=== PATIENT | male | born 1980 | race Two or more races ===

== ENCOUNTER 2025-04-28 13:40 | Inpatient (IN) ==
[2025-04-28] MEDS ORDERED: XYLOCAINE 2 % (PLAIN) ONE (15:14)
[2025-04-28] MEDS ORDERED: NovoLIN R (or HumuLIN R) SUBCUT PRN ×2 (15:57→16:37)
[2025-04-28] MEDS ORDERED: VANCOMYCIN IV *PREMIX 1 G/200 ML BAG 1 G/200 ML PIGGYBACK IV SCH (15:57)
[2025-04-28] MEDS ORDERED: NS 250 ML IV 25 ML IV PRN (15:57)
[2025-04-28] MEDS ORDERED: ZOSYN VIAL 4.5 GRAMS 4.5 G in NS 100 ML IV 100 ML IV SCH (15:57)
[2025-04-28 16:17] VITALS: BMI 33.3
[2025-04-28 16:30] LABS: BASOPHILS % (AUTO) 0.4 % (0.2-1.0); EOSINOPHILS # (AUTO) 0.2 x10^3/uL (0.0-0.2); EOSINOPHILS % (AUTO) 1.8 % (0.9-2.9); HEMATOCRIT 44.4 % (42.0-54.0); HEMOGLOBIN 14.9 g/dL (13.5-18.0); LYMPHOCYTES # (AUTO) 2.8 X10^3/uL (1.3-2.9); LYMPHOCYTES % (AUTO) 23.7 % (21.0-51.0); MEAN CORPUSCULAR HEMOGLOBIN 29.1 pg (27.0-34.0); MEAN CORPUSCULAR HGB CONC 33.6 g/dL (33.0-35.0); MEAN CORPUSCULAR VOLUME 86.5 fL (80.0-100.0); MONOCYTES # (AUTO) 1.2 x10^3/uL (0.3-0.8); MONOCYTES % (AUTO) 10.1 % (0.0-13.0); NEUTROPHILS # (AUTO) 7.6 x10^3/uL (2.2-4.8); PLATELET COUNT 224 X10^3/uL (150.0-450.0); RED BLOOD COUNT 5.13 X10^6/uL (4.7-6.0); RED CELL DISTRIBUTION WIDTH 13.6 % (11.6-16.5); WHITE BLOOD COUNT 11.8 X10^3/uL (3.6-10.0)
[2025-04-28 16:39] LABS: ALANINE AMINOTRANSFERASE 44 Units/L (12-78); ALBUMIN 4.7 g/dL (3.4-5.0); ALKALINE PHOSPHATASE 105 Units/L (46-116); ASPARTATE AMINO TRANSFERASE 23 Units/L (15-37); BLOOD UREA NITROGEN 9 mg/dL (7-18); CALCIUM 9.8 mg/dL (8.5-10.1); CARBON DIOXIDE 28.4 mmol/L (21-32); CHLORIDE 101 mmol/L (98-107); CREATININE 1.05 mg/dL (0.70-1.30); GLUCOSE 100 mg/dL (65-99); POTASSIUM 3.4 mmol/L (3.5-5.1); SODIUM 140 mmol/L (136-145); TOTAL PROTEIN 10.7 g/dL (6.4-8.2); eGFR NON BLACK RACES > 60 (>60)
--- NOTE | 2025-04-28 17:04 | US ---
EXAM: LIMITED RIGHT INNER THIGH/PERINEUM AREA SOFT TISSUE ULTRASOUND HISTORY: Possible abscess in the right thigh and perennial. TECHNIQUE: Umanzor scale imaging, duplex Doppler and color flow Doppler imaging are performed with a high frequency linear transducer. COMPARISON: None available. FINDINGS: The region of interest demonstrates severe diffuse subcutaneous soft tissue edema and hyperemia consistent with cellulitis. There is a relatively focal, ill-defined, subcutaneous phlegmon (or early developing abscess) in the area labeled "lump #2" (no measurements provided, but estimated to be at least 5 cm CC by 1.5 cm AP). No definite drainable fluid collection is seen at this time. There is no discernible cutaneous or subcutaneous soft tissue or cystic mass lesion seen. There is no discernible architectural parenchymal distortion. There is no discernible suspicious lymphadenopathy. No discernible shadowing calculus is seen. IMPRESSION: 1. Severe diffuse subcutaneous soft tissue edema and hyperemia consistent with cellulitis. 2. Relatively focal, ill-defined subcutaneous phlegmon (or early developing abscess) in the area labeled "lump #2" (no measurements provided, but estimated to be at least 5 cm CC by 1.5 cm AP). 3. No definite drainable fluid collection is seen at this time. 4. Consider follow-up evaluation with sectional imaging (CT and/or MRI) for optimal/comprehensive assessment as clinically warranted. THIS IS AN ELECTRONICALLY VERIFIED FINAL REPORT 04/28/2025 5:01 PM - Electronically signed by Tigist Stephen MD
[2025-04-28] MEDS ORDERED: NS 100 ML IV 100 ML ONE (17:20)
[2025-04-28 18:01] LABS: BILIRUBIN,URINE NEGATIVE (NEGATIVE); BLOOD/HEMOGLOBIN,URINE NEGATIVE (NEGATIVE); GLUCOSE, URINE NEGATIVE (NEGATIVE); KETONES,URINE NEGATIVE (NEGATIVE); LEUKOCYTE ESTERASE ,URINE NEGATIVE (NEGATIVE); NITRITES,URINE NEGATIVE (NEGATIVE); PH,URINE 6.5 (5.0 - 8.0); PROTEIN,URINE 1+ (NEGATIVE); UROBILINOGEN,URINE NORMAL (NORMAL)
[2025-04-28 18:11] LABS: APPEARANCE,URINE CLEAR (CLEAR); COLOR,URINE YELLOW (YELLOW)
[2025-04-28 18:12] LABS: BACTERIA,URINE NEGATIVE /HPF (NEGATIVE); RBC,URINE 0-2 /HPF (0-3); SQUAMOUS EPITHELIAL CELL,UR RARE /HPF (NEGATIVE)
[2025-04-28] MEDS: VANCOMYCIN IV *PREMIX 1.25 G/250 ML BAG 1.25 G/250 ML PIGGYBACK IV ONE (18:55)
[2025-04-28] MEDS: VANCOMYCIN HCL 250 MG, VANCOMYCIN HCL 1 G in D5W 250 ML IV 250 ML IV SCH (18:58)
[2025-04-28] MEDS ORDERED: SNACK - Diabetic Appropriate PO SCH (20:00)
--- NOTE | 2025-04-28 20:09 | CT ---
EXAM: CT ABDOMEN AND PELVIS WITHOUT AND WITH CONTRAST HISTORY: PERIANAL ABSCESS COMPARISON: None TECHNIQUE: Axial images were acquired of the abdomen and pelvis WITHOUT AND WITH IV contrast. Sagittal and coronal reformatted images were provided. All images were reviewed in a variety of windows and levels. RADIATION REDUCTION TECHNIQUE: Automated exposure control, adjustment of the mA and/or kV according to patient size, or iterative reconstruction techniques were used. FINDINGS: There is no evidence of stones or signs of obstructive uropathy on the noncontrast portion of the examination. There is no evidence of an intramural hematoma on the noncontrast portion of the examination. LOWER THORAX: The visualized lower lung zones are clear. The heart size is within normal limits. There is no evidence of a pericardial effusion. LIVER: No intrahepatic focal lesions are seen. No evidence of intrahepatic or extrahepatic duct dilation. GALLBLADDER: The gallbladder is unremarkable. SPLEEN: The spleen enhances homogenously and is unremarkable. PANCREAS: The pancreas enhances homogenously and is unremarkable. ADRENAL GLANDS: The adrenal glands enhance homogenously and are unremarkable. : The kidneys enhance homogenously. Their collecting system is of normal caliber. URINARY BLADDER: The urinary bladder is unremarkable. There are no soft tissue masses seen in the urinary bladder. VESSELS: The abdominal aorta is normal in size without evidence of aneurysm or dissection. The celiac artery, superior mesenteric artery, [place] renal arteries, and inferior mesenteric artery are patent. GI: The stomach and small bowel is unremarkable. The large bowel is unremarkable There are no inflammatory changes seen in the right lower quadrant to suggest secondary signs of acute appendicitis. The appendix is not visualized on this exam. There is no fluid collection seen in the perianal region to suggest perianal abscess. However, it should be noted that the scan did not go low enough below the buttock region to assess the remaining lower portion of the perianal region. LYMPHNODES AND MESENTERY: There is no evidence of retroperitoneal lymphadenopathy. BONES: The visualized bones demonstrate degenerative changes most notable at the L5-S1 level. There are no concerning lytic or blastic lesions identified. IMPRESSION: 1. There is no fluid collection seen in the perianal region to suggest perianal abscess. However, it should be noted that the scan did not go low enough below the buttock region to assess the remaining lower portion of the perianal region. THIS IS AN ELECTRONICALLY VERIFIED FINAL REPORT 04/28/2025 8:05 PM - Electronically signed by Manish Amezcua MD
[2025-04-28] MEDS: ZOSYN VIAL 4.5 GRAMS 4.5 G in NS 100 ML IV 100 ML IV SCH (21:06)
[2025-04-28] MEDS: SNACK - Diabetic Appropriate PO SCH (21:50)
[2025-04-29] MEDS ORDERED: HIBICLENS WASH ONE (03:18)
[2025-04-29] MEDS: HIBICLENS WASH EXT ONE (03:56)
[2025-04-29] MEDS: NORCO 5/325 MG TAB PO PRN (04:20)
[2025-04-29 05:28] LABS: BASOPHILS % (AUTO) 0.4 % (0.2-1.0); EOSINOPHILS # (AUTO) 0.3 x10^3/uL (0.0-0.2); EOSINOPHILS % (AUTO) 2.7 % (0.9-2.9); HEMATOCRIT 41.9 % (42.0-54.0); HEMOGLOBIN 14.5 g/dL (13.5-18.0); LYMPHOCYTES # (AUTO) 1.9 X10^3/uL (1.3-2.9); LYMPHOCYTES % (AUTO) 18.9 % (21.0-51.0); MEAN CORPUSCULAR HEMOGLOBIN 29.6 pg (27.0-34.0); MEAN CORPUSCULAR HGB CONC 34.5 g/dL (33.0-35.0); MEAN CORPUSCULAR VOLUME 85.7 fL (80.0-100.0); MEAN PLATELET VOLUME 9.3 fL (7.4-11.0); MONOCYTES # (AUTO) 1.2 x10^3/uL (0.3-0.8); MONOCYTES % (AUTO) 12.4 % (0.0-13.0); NEUTROPHILS # (AUTO) 6.5 x10^3/uL (2.2-4.8); NEUTROPHILS % (AUTO) 65.6 % (42.0-75.0); PLATELET COUNT 226 X10^3/uL (150.0-450.0); RED BLOOD COUNT 4.89 X10^6/uL (4.7-6.0); RED CELL DISTRIBUTION WIDTH 13.1 % (11.6-16.5); WHITE BLOOD COUNT 9.9 X10^3/uL (3.6-10.0)
[2025-04-29 05:37] LABS: ALANINE AMINOTRANSFERASE 37 Units/L (12-78); ALKALINE PHOSPHATASE 102 Units/L (46-116); ASPARTATE AMINO TRANSFERASE 21 Units/L (15-37); BLOOD UREA NITROGEN 10 mg/dL (7-18); CARBON DIOXIDE 25.7 mmol/L (21-32); CHLORIDE 103 mmol/L (98-107); COR NA(FOR HYPERGLY) 141 mmol/L (136-145); CREATININE 1.08 mg/dL (0.70-1.30); GLUCOSE 123 mg/dL (65-99); MAGNESIUM 2.1 mg/dL (2.0-2.9); POTASSIUM 3.3 mmol/L (3.5-5.1); SODIUM 140 mmol/L (136-145); TOTAL PROTEIN 9.4 g/dL (6.4-8.2); eGFR NON BLACK RACES > 60 (>60)
[2025-04-29] MEDS ORDERED: CONSULT PHARMACY - POTASSIUM & MAGNESIUM XX SCH ×2 (07:00→10:00)
--- NOTE | 2025-04-29 08:09 | RAD ---
EXAM: CHEST, 1 VIEW HISTORY: Cellulitis to lower extremity; COMPARISON: None. TECHNIQUE: AP portable FINDINGS: Unremarkable cardiac silhouette. No focal consolidation, pleural effusion, or pneumothorax. IMPRESSION: No acute cardiopulmonary findings. THIS IS AN ELECTRONICALLY VERIFIED FINAL REPORT 04/29/2025 8:06 AM - Electronically signed by Sherwin Almazan MD
--- NOTE | 2025-04-29 08:46 | DR.H&P ---
H&P History & Physical for Day of: H&P Date: 04/28/25 Chief Complaint Chief Complaint: sore to right thigh and rectum History of Present Illness History of Present Illness: PT IS 45 HM, [place] [facility] [place] WITH AN ABCESS FORMATION TO RIGHT UPPER, INNER THIGH WITH CELLULITIS AND PERIANAL REDNESS AND SWELLING. PT HAS PMH OF DIABETES AND HYPERLIPIDEMIA. PT DENIES ANY CAD OR HTN. PT DENIES ANY RECTAL BLEEDING NO PRIOR COLONSCOPY. PT ADMITTED FOR TREATMENT AND EVALUATION OF ACUTE ILLNESS. Past Medical History Additional Medical History: DM. HYPERLIPIDEMIA Social History Type of Tobacco Use: None Alcohol Use: None Drug Use: None Medications Home Medications: Home Medications Medication Instructions Recorded Confirmed Type atorvastatin 20 mg tablet (Lipitor) 20 mg PO QHS 04/2804/28/25 History metformin 500 mg tablet 500 mg PO QDAY 04/28/2504/05 History Allergies Allergies Allergy/AdvReac Type Severity Reaction Status Date / Time No Known Drug Allergies Allergy Verified 04/28/25 17:11 (NKDA) Labs 04/29/25 04:27 04/29/25 04:27 Labs: 04/28/25 16:50 Scrotum Wound Gram Stain - Final Laboratory WBC 9.9 X10^3/uL (3.6-10.0) 04/29/25 04:27 RBC 4.89 X10^6/uL (4.7-6.0) 04/29/25 04:27 Hgb 14.5 g/dL (13.5-18.0) 04/29/25 04:27 Hct 41.9 % (42.0-54.0) L 04/29/25 04:27 MCV 85.7 fL (80.0-100.0) 04/29/25 04:27 MCH 29.6 pg (27.0-34.0) 04/29/25 04:27 MCHC 34.5 g/dL (33.0-35.0) 04/29/25 04:27 RDW 13.1 % (11.6-16.5) 04/29/25 04:27 Plt Count 226 X10^3/uL (150.0-450.0) 04/29/25 04:27 MPV 9.3 fL (7.4-11.0) 04/29/25 04:27 Neut % (Auto) 65.6 % (42.0-75.0) 04/29/25 04:27 Lymph % (Auto) 18.9 % (21.0-51.0) L 04/29/25 04:27 [place] % (Auto) 12.4 % (0.0-13.0) 04/29/25 04:27 Eos % (Auto) 2.7 % (0.9-2.9) 04/29/25 04:27 Baso % (Auto) 0.4 % (0.2-1.0) 04/29/25 04:27 Neut # (Auto) 6.5 x10^3/uL (2.2-4.8) H 04/29/25 04:27 Lymph # (Auto) 1.9 X10^3/uL (1.3-2.9) 04/29/25 04:27 [place] # (Auto) 1.2 x10^3/uL (0.3-0.8) H 04/29/25 04:27 Eos # (Auto) 0.3 x10^3/uL (0.0-0.2) H 04/29/25 04:27 Baso # (Auto) 0.0 X10^3/uL (0.0-0.1) 04/29/25 04:27 Absolute Nucleated RBC 0.1 /100WBC 04/29/25 04:27 Sodium 140 mmol/L (136-145) 04/29/25 04:27 Corrected Sodium 141 mmol/L (136-145) 04/29/25 04:27 Potassium 3.3 mmol/L (3.5-5.1) L 04/29/25 04:27 Chloride 103 mmol/L (98-107) 04/29/25 04:27 Carbon Dioxide 25.7 mmol/L (21-32) 04/29/25 04:27 BUN 10 mg/dL (7-18) 04/29/25 04:27 Creatinine 1.08 mg/dL (0.70-1.30) 04/29/25 04:27 Est GFR (MDRD) Af Amer > 60 (>60) 04/29/25 04:27 Est GFR (MDRD) Non-Af > 60 (>60) 04/29/25 04:27 Glucose 123 mg/dL (65-99) H 04/29/25 04:27 POC Glucose (mg/dL) 125 mg/dL (65-99) H 04/29/25 05:15 Calcium 9.0 mg/dL (8.5-10.1) 04/29/25 04:27 Corrected Calcium TNP 04/29/25 04:27 Magnesium 2.1 mg/dL (2.0-2.9) 04/29/25 04:27 Total Bilirubin 0.60 mg/dL (0.2-1.0) 04/29/25 04:27 AST 21 Units/L (15-37) 04/29/25 04:27 ALT 37 Units/L (12-78) 04/29/25 04:27 Alkaline Phosphatase 102 Units/L (46-116) 04/29/25 04:27 Total Protein 9.4 g/dL (6.4-8.2) H 04/29/25 04:27 Albumin 4.0 g/dL (3.4-5.0) 04/29/25 04:27 Globulin 5.4 g/dL (2.5-4.5) H 04/29/25 04:27 Albumin/Globulin Ratio 0.7 Ratio (1.1-2.1) L 04/29/25 04:27 Specimen Type Clean catch urine 04/28/25 17:50 Urine Color Yellow (YELLOW) 04/28/25 17:50 Urine Appearance Clear (CLEAR) 04/28/25 17:50 Urine pH 6.5 (5.0 - 8.0) 04/28/25 17:50 Ur Specific [place] 1.005 (1.000-1.030) 04/28/25 17:50 Urine Protein 1+ (NEGATIVE) 04/28/25 17:50 Urine Glucose (UA) Negative (NEGATIVE) 04/28/25 17:50 Urine Ketones Negative (NEGATIVE) 04/28/25 17:50 Urine Blood Negative (NEGATIVE) 04/28/25 17:50 Urine Nitrite Negative (NEGATIVE) 04/28/25 17:50 Urine Bilirubin Negative (NEGATIVE) 04/28/25 17:50 Urine Urobilinogen Normal (NORMAL) 04/28/25 17:50 Ur Leukocyte Esterase Negative (NEGATIVE) 04/28/25 17:50 Urine RBC 0-2 /HPF (0-3) 04/28/25 17:50 Urine WBC 0-2 /HPF (0-5) 04/28/25 17:50 Ur Squamous Epith Cells Rare /HPF (NEGATIVE) 04/28/25 17:50 Urine Bacteria Negative /HPF (NEGATIVE) 04/28/25 17:50 Ur Culture Indicated? No/not indicated 04/28/25 17:50 Review of Systems Constitutional: Fever and Chills Eyes: No Symptoms Reported ENT: No Symptoms Reported Respiratory: No Symptoms Reported Cardiovascular: denies Chest Pain Gastrointestinal: No Symptoms Reported Genitourinary: No Symptoms Reported Musculoskeletal: Leg Pain (RIGHT INNER THIGH); denies Back Pain Skin: Wound Neurological: No Symptoms Reported Physical Exam Vital Signs: Vital Signs Temperature 98.4 F Temperature 98.8 F Temperature 101 F Pulse Rate 52 Pulse Rate 56 Pulse Rate 56 Pulse Rate 56 Pulse Rate 59 Pulse Rate 59 Pulse Rate 63 Pulse Rate 66 Pulse Rate 68 Pulse Rate 67 Pulse Rate 72 Pulse Rate 77 Pulse Rate 59 Pulse Rate 68 Pulse Rate 64 Pulse Rate 60 Pulse Rate 60 Pulse Rate 61 Pulse Rate 62 Pulse Rate 62 Pulse Rate 62 Pulse Rate 64 Pulse Rate 61 Respiratory Rate 17 Respiratory Rate 15 Respiratory Rate 18 Respiratory Rate 15 Respiratory Rate 18 Respiratory Rate 17 Respiratory Rate 17 Respiratory Rate 13 Respiratory Rate 22 Respiratory Rate 18 Respiratory Rate 23 Respiratory Rate 18 Respiratory Rate 25 Respiratory Rate 21 Respiratory Rate 22 Respiratory Rate 21 Respiratory Rate 18 Respiratory Rate 17 Respiratory Rate 21 Respiratory Rate 20 Respiratory Rate 19 Respiratory Rate 21 Respiratory Rate 19 Respiratory Rate 20 Blood Pressure 103/64 Blood Pressure 107/60 Blood Pressure 117/67 Blood Pressure 158/76 Blood Pressure 147/84 Blood Pressure 136/71 Blood Pressure 124/63 O2 Sat by Pulse Oximetry 96 O2 Sat by Pulse Oximetry 94 O2 Sat by Pulse Oximetry 94 O2 Sat by Pulse Oximetry 94 O2 Sat by Pulse Oximetry 96 O2 Sat by Pulse Oximetry 95 O2 Sat by Pulse Oximetry 94 O2 Sat by Pulse Oximetry 95 O2 Sat by Pulse Oximetry 95 O2 Sat by Pulse Oximetry 95 O2 Sat by Pulse Oximetry 95 O2 Sat by Pulse Oximetry 96 O2 Sat by Pulse Oximetry 95 O2 Sat by Pulse Oximetry 97 O2 Sat by Pulse Oximetry 95 O2 Sat by Pulse Oximetry 96 O2 Sat by Pulse Oximetry 95 O2 Sat by Pulse Oximetry 96 O2 Sat by Pulse Oximetry 95 O2 Sat by Pulse Oximetry 95 O2 Sat by Pulse Oximetry 95 O2 Sat by Pulse Oximetry 96 O2 Sat by Pulse Oximetry 96 Oriented: Normal Eyes: Normal Ear: Normal Nose: Normal Throat: Normal Respiratory: Clear Throughout Cardiovascular: Normal : Testicular Pain (SCROTAL); negative Hematuria Auscultation: Bowel Sounds: Normal Palpation: Normal Tenderness: Normal Skin: Red, Tender, Hot and Wound Musculoskeletal: Right, Thigh, Leg and Tender Psychiatric: Normal Mood Description: Calm Affect: Normal Speech Pattern: Clear and Appropriate Assessment/Plan (1) Perianal abscess: Status: Acute Plan: ADMIT, BLOOD AND WOUND CULTURE ON ADMISSION IV VANCOMYCIN AND ZOSYN BS CONTROL, IV HYDRATION PRN PAIN CONTROL, CT ON ADMISSION DR PONCE CONSULTED FOR SURGICAL EVALUATION (2) Diabetes: Status: Acute (3) Abscess of right thigh: Status: Acute (4) Scrotal edema: Status: Acute
[2025-04-29] MEDS: VERSED ONE (11:43)
[2025-04-29] MEDS: XYLOCAINE 2 % (PLAIN) ONE (11:43)
[2025-04-29] MEDS: FENTANYL VIAL INJ 100 mcg ONE (11:43)
[2025-04-29] MEDS: DIPRIVAN VIAL 0 ML ONE ×3 (11:44→14:31)
--- NOTE | 2025-04-29 13:13 | PCM.PROG ---
Progress Note Progress Note for Day of Date of Exam: 04/29/25 Subjective Subjective: PT IS 45 HM, ADMITTED WITH PERIRECTAL ABSCESSE WITH CONCERN FOR SOBEIDA DUE TO HX OF DIABETES. PT HAS AN ABSCESS TO RIGHT UPPER INNER THIGH WITH CELLULITIS/REDNESS FROM RIGHT OUTER LOWER RECTAL AREA AND LOWER BUTTOCK TO RIGHT UPPER THIGH. PT IS CURRENTLY ON VANCOMYCIN AND ZOSYN IV. PT HAD BLOOD CULTURES ON ADMISSION. PT IS NPO THIS AM FOR SURGICAL INTERVENTION. PT STATES PAIN IS CONTROLLED AT THIS TIME. PT SPIKED TEMP LAST PM, WBC 9.9, HGB 14.5 Past Medical Family Social History Allergies: Allergies No Known Drug Allergies (NKDA) Allergy (Verified 04/28/25 17:11) Vital Signs and I&O's Vital Signs: Vital Signs Temperature 98.4 F Temperature 98.4 F Temperature 98.8 F Pulse Rate 55 Pulse Rate 53 Pulse Rate 56 Pulse Rate 54 Pulse Rate 60 Pulse Rate 64 Pulse Rate 58 Pulse Rate 62 Pulse Rate 55 Pulse Rate 53 Pulse Rate 56 Pulse Rate 52 Pulse Rate 52 Pulse Rate 51 Pulse Rate 50 Pulse Rate 52 Pulse Rate 50 Pulse Rate 55 Pulse Rate 56 Pulse Rate 56 Pulse Rate 56 Pulse Rate 56 Pulse Rate 59 Respiratory Rate 15 Respiratory Rate 15 Respiratory Rate 19 Respiratory Rate 16 Respiratory Rate 17 Respiratory Rate 21 Respiratory Rate 19 Respiratory Rate 20 Respiratory Rate 16 Respiratory Rate 15 Respiratory Rate 16 Respiratory Rate 14 Respiratory Rate 14 Respiratory Rate 15 Respiratory Rate 15 Respiratory Rate 17 Respiratory Rate 14 Respiratory Rate 19 Respiratory Rate 14 Respiratory Rate 15 Respiratory Rate 18 Respiratory Rate 15 Respiratory Rate 18 Respiratory Rate 17 Blood Pressure 108/68 Blood Pressure 126/72 Blood Pressure 103/64 Blood Pressure 111/63 Blood Pressure 103/64 Blood Pressure 107/60 O2 Sat by Pulse Oximetry 96 O2 Sat by Pulse Oximetry 96 O2 Sat by Pulse Oximetry 95 O2 Sat by Pulse Oximetry 96 O2 Sat by Pulse Oximetry 96 O2 Sat by Pulse Oximetry 96 O2 Sat by Pulse Oximetry 96 O2 Sat by Pulse Oximetry 96 O2 Sat by Pulse Oximetry 97 O2 Sat by Pulse Oximetry 95 O2 Sat by Pulse Oximetry 96 O2 Sat by Pulse Oximetry 96 O2 Sat by Pulse Oximetry 95 O2 Sat by Pulse Oximetry 96 O2 Sat by Pulse Oximetry 96 O2 Sat by Pulse Oximetry 96 O2 Sat by Pulse Oximetry 95 O2 Sat by Pulse Oximetry 94 O2 Sat by Pulse Oximetry 93 O2 Sat by Pulse Oximetry 94 O2 Sat by Pulse Oximetry 94 O2 Sat by Pulse Oximetry 94 O2 Sat by Pulse Oximetry 96 Intake and Output: Intake & Output 04/27/25 04/28/25 04/29/25 04/30/25 11:59 11:59 11:59 11:59 Intake Total 500 / 500 Balance 500 / 500 Physical Exam Oriented: Normal Eyes: Normal Ear: Normal Nose: Normal Throat: Normal Respiratory: Normal Cardiovascular: Normal : Testicular Pain (SCROTAL); negative Hematuria Auscultation: Bowel Sounds: Normal Tenderness: Normal Skin: Red, Tender, Hot and Wound Musculoskeletal: Right, Thigh, Leg and Tender Psychiatric: Normal Mood Description: Calm Affect: Normal Speech Pattern: Clear and Appropriate Laboratory and Diagnostics 04/29/25 04:27 04/29/25 04:27 Labs: 04/28/25 16:50 Scrotum Wound Gram Stain - Final 04/28/25 16:50 Scrotum Wound Culture - Preliminary 04/28/25 17:50 Urine,Clean Catch Urine Culture - Preliminary Laboratory WBC 9.9 X10^3/uL (3.6-10.0) 04/29/25 04:27 RBC 4.89 X10^6/uL (4.7-6.0) 04/29/25 04:27 Hgb 14.5 g/dL (13.5-18.0) 04/29/25 04:27 Hct 41.9 % (42.0-54.0) L 04/29/25 04:27 MCV 85.7 fL (80.0-100.0) 04/29/25 04:27 MCH 29.6 pg (27.0-34.0) 04/29/25 04:27 MCHC 34.5 g/dL (33.0-35.0) 04/29/25 04:27 RDW 13.1 % (11.6-16.5) 04/29/25 04:27 Plt Count 226 X10^3/uL (150.0-450.0) 04/29/25 04:27 MPV 9.3 fL (7.4-11.0) 04/29/25 04:27 Neut % (Auto) 65.6 % (42.0-75.0) 04/29/25 04:27 Lymph % (Auto) 18.9 % (21.0-51.0) L 04/29/25 04:27 [place] % (Auto) 12.4 % (0.0-13.0) 04/29/25 04:27 Eos % (Auto) 2.7 % (0.9-2.9) 04/29/25 04:27 Baso % (Auto) 0.4 % (0.2-1.0) 04/29/25 04:27 Neut # (Auto) 6.5 x10^3/uL (2.2-4.8) H 04/29/25 04:27 Lymph # (Auto) 1.9 X10^3/uL (1.3-2.9) 04/29/25 04:27 [place] # (Auto) 1.2 x10^3/uL (0.3-0.8) H 04/29/25 04:27 Eos # (Auto) 0.3 x10^3/uL (0.0-0.2) H 04/29/25 04:27 Baso # (Auto) 0.0 X10^3/uL (0.0-0.1) 04/29/25 04:27 Absolute Nucleated RBC 0.1 /100WBC 04/29/25 04:27 Sodium 140 mmol/L (136-145) 04/29/25 04:27 Corrected Sodium 141 mmol/L (136-145) 04/29/25 04:27 Potassium 3.3 mmol/L (3.5-5.1) L 04/29/25 04:27 Chloride 103 mmol/L (98-107) 04/29/25 04:27 Carbon Dioxide 25.7 mmol/L (21-32) 04/29/25 04:27 BUN 10 mg/dL (7-18) 04/29/25 04:27 Creatinine 1.08 mg/dL (0.70-1.30) 04/29/25 04:27 Est GFR (MDRD) Af Amer > 60 (>60) 04/29/25 04:27 Est GFR (MDRD) Non-Af > 60 (>60) 04/29/25 04:27 Glucose 123 mg/dL (65-99) H 04/29/25 04:27 POC Glucose (mg/dL) 95 mg/dL (65-99) 04/29/25 11:22 Hemoglobin A1c 5.4 % 04/29/25 04:27 Calcium 9.0 mg/dL (8.5-10.1) 04/29/25 04:27 Corrected Calcium TNP 04/29/25 04:27 Magnesium 2.1 mg/dL (2.0-2.9) 04/29/25 04:27 Total Bilirubin 0.60 mg/dL (0.2-1.0) 04/29/25 04:27 AST 21 Units/L (15-37) 04/29/25 04:27 ALT 37 Units/L (12-78) 04/29/25 04:27 Alkaline Phosphatase 102 Units/L (46-116) 04/29/25 04:27 Total Protein 9.4 g/dL (6.4-8.2) H 04/29/25 04: Albumin 4.0 g/dL (3.4-5.0) 04/29/25 04:27 Globulin 5.4 g/dL (2.5-4.5) H 04/29/25 04:27 Albumin/Globulin Ratio 0.7 Ratio (1.1-2.1) L 04/29/25 04:27 Specimen Type Clean catch urine 04/28/25 17:50 Urine Color Yellow (YELLOW) 04/28/25 17:50 Urine Appearance Clear (CLEAR) 04/28/25 17:50 Urine pH 6.5 (5.0 - 8.0) 04/28/25 17:50 Ur Specific [place] 1.005 (1.000-1.030) 04/28/25 17:50 Urine Protein 1+ (NEGATIVE) 04/28/25 17:50 Urine Glucose (UA) Negative (NEGATIVE) 04/28/25 17:50 Urine Ketones Negative (NEGATIVE) 04/28/25 17:50 Urine Blood Negative (NEGATIVE) 04/28/25 17:50 Urine Nitrite Negative (NEGATIVE) 04/28/25 17:50 Urine Bilirubin Negative (NEGATIVE) 04/28/25 17:50 Urine Urobilinogen Normal (NORMAL) 04/28/25 17:50 Ur Leukocyte Esterase Negative (NEGATIVE) 04/28/25 17:50 Urine RBC 0-2 /HPF (0-3) 04/28/25 17:50 Urine WBC 0-2 /HPF (0-5) 04/28/25 17:50 Ur Squamous Epith Cells Rare /HPF (NEGATIVE) 04/28/25 17:50 Urine Bacteria Negative /HPF (NEGATIVE) 04/28/25 17:50 Ur Culture Indicated? No/not indicated 04/28/25 17:50 Plan (1) Perianal abscess: Status: Acute Plan: BLOOD AND WOUND CULTURE ON ADMISSION IV VANCOMYCIN AND ZOSYN BS CONTROL, IV HYDRATION PRN PAIN CONTROL, CT OBTAINED ON ADMISSION DR PONCE CONSULTED FOR SURGICAL EVALUATION (2) Diabetes: Status: Acute (3) Abscess of right thigh: Status: Acute (4) Scrotal edema: Status: Acute
[2025-04-29] MEDS: VERSED IVP PRN (14:08)
[2025-04-29] MEDS: LR 1,000 ML IV 1,000 ML IV ONE (14:09)
[2025-04-29] MEDS: LR 1,000 ML IV 500 ML IV PRN (14:09)
[2025-04-29] MEDS ORDERED: XYLOCAINE 2 % (PLAIN) PRN (14:12)
[2025-04-29] MEDS: DIPRIVAN VIAL 200 ML IVP PRN (14:13)
[2025-04-29] MEDS: BETADINE SOLN ONE (14:22)
[2025-04-29] MEDS: MARCAINE 0.5% ONE (14:22)
[2025-04-29] MEDS: FENTANYL VIAL INJ 100 mcg IVP PRN (14:30)
[2025-04-29] MEDS: DIPRIVAN VIAL 20 ML ONE (14:32)
[2025-04-29] MEDS: K-DUR TAB 20 MEQ PO SCH (17:47)
[2025-04-29] MEDS: VANCOMYCIN IV *PREMIX 1.25 G/250 ML BAG 1.25 G/250 ML PIGGYBACK IV SCH (17:48)
[2025-04-30 04:29] LABS: BASOPHILS # (AUTO) 0.2 X10^3/uL (0.0-0.1); BASOPHILS % (AUTO) 2.1 % (0.2-1.0); EOSINOPHILS # (AUTO) 0.4 x10^3/uL (0.0-0.2); EOSINOPHILS % (AUTO) 4.2 % (0.9-2.9); HEMATOCRIT 40.5 % (42.0-54.0); HEMOGLOBIN 13.9 g/dL (13.5-18.0); LYMPHOCYTES # (AUTO) 1.8 X10^3/uL (1.3-2.9); LYMPHOCYTES % (AUTO) 21.7 % (21.0-51.0); MEAN CORPUSCULAR HEMOGLOBIN 29.5 pg (27.0-34.0); MEAN CORPUSCULAR HGB CONC 34.3 g/dL (33.0-35.0); MEAN CORPUSCULAR VOLUME 86.1 fL (80.0-100.0); MEAN PLATELET VOLUME 8.7 fL (7.4-11.0); MONOCYTES # (AUTO) 0.9 x10^3/uL (0.3-0.8); MONOCYTES % (AUTO) 10.7 % (0.0-13.0); NEUTROPHILS # (AUTO) 5.2 x10^3/uL (2.2-4.8); NEUTROPHILS % (AUTO) 61.3 % (42.0-75.0); PLATELET COUNT 207 X10^3/uL (150.0-450.0); RED CELL DISTRIBUTION WIDTH 13.3 % (11.6-16.5); WHITE BLOOD COUNT 8.4 X10^3/uL (3.6-10.0)
[2025-04-30 04:47] LABS: ALANINE AMINOTRANSFERASE 29 Units/L (12-78); ALBUMIN 3.2 g/dL (3.4-5.0); ALKALINE PHOSPHATASE 103 Units/L (46-116); ASPARTATE AMINO TRANSFERASE 22 Units/L (15-37); BLOOD UREA NITROGEN 12 mg/dL (7-18); CALCIUM 8.6 mg/dL (8.5-10.1); CARBON DIOXIDE 28.3 mmol/L (21-32); CHLORIDE 106 mmol/L (98-107); COR CA(FOR HYPOALB) 9.2 mg/dL (8.5-10.1); COR NA(FOR HYPERGLY) 144 mmol/L (136-145); CREATININE 1.09 mg/dL (0.70-1.30); GLUCOSE 128 mg/dL (65-99); POTASSIUM 4.2 mmol/L (3.5-5.1); SODIUM 143 mmol/L (136-145); TOTAL PROTEIN 8.7 g/dL (6.4-8.2); eGFR NON BLACK RACES > 60 (>60)
[2025-04-30 04:52] LABS: VANCOMYCIN,TROUGH 6.3 ug/mL (15-20)
[2025-04-30] MEDS: PHARMACY COMMENT IV SCH (04:55)
[2025-04-30] MEDS: MYLICON TAB 80 MG CHEW PO PRN (08:29)
[2025-04-30] MEDS: OMNIPAQUE 350 mg/mL 100 mL BTL 100 ML ONE (12:33)
[2025-04-30] MEDS: NS 250 ML IV 250 ML IV ONE ×2 (12:33)
[2025-04-30] MEDS: READI-CAT 2 ONE (12:33)
[2025-04-30] MEDS: NS 250 ML IV 25 ML IV PRN (13:15)
[2025-04-30] MEDS: VANCOMYCIN IV *PREMIX 1.25 G/250 ML BAG 1.25 G/250 ML PIGGYBACK IV SCH (13:16)
[2025-04-30] MEDS: VANCOMYCIN IV *PREMIX 1 G/200 ML BAG 1 G/200 ML PIGGYBACK IV SCH (13:23)
[2025-04-30] MEDS: K-DUR TAB 20 MEQ PO SCH (13:23)
[2025-05-01] MEDS: PHARMACY COMMENT IV ONE (05:06)
[2025-05-01 06:35] LABS: BASOPHILS % (AUTO) 0.7 % (0.2-1.0); EOSINOPHILS # (AUTO) 0.4 x10^3/uL (0.0-0.2); EOSINOPHILS % (AUTO) 6.3 % (0.9-2.9); HEMATOCRIT 40.2 % (42.0-54.0); HEMOGLOBIN 13.6 g/dL (13.5-18.0); LYMPHOCYTES # (AUTO) 2.1 X10^3/uL (1.3-2.9); LYMPHOCYTES % (AUTO) 33.6 % (21.0-51.0); MEAN CORPUSCULAR HEMOGLOBIN 29.2 pg (27.0-34.0); MEAN CORPUSCULAR HGB CONC 33.9 g/dL (33.0-35.0); MEAN CORPUSCULAR VOLUME 86.1 fL (80.0-100.0); MEAN PLATELET VOLUME 8.8 fL (7.4-11.0); MONOCYTES # (AUTO) 0.8 x10^3/uL (0.3-0.8); MONOCYTES % (AUTO) 11.8 % (0.0-13.0); NEUTROPHILS % (AUTO) 47.6 % (42.0-75.0); PLATELET COUNT 210 X10^3/uL (150.0-450.0); RED BLOOD COUNT 4.67 X10^6/uL (4.7-6.0); WHITE BLOOD COUNT 6.4 X10^3/uL (3.6-10.0)
[2025-05-01 06:41] LABS: ALANINE AMINOTRANSFERASE 48 Units/L (12-78); ALKALINE PHOSPHATASE 109 Units/L (46-116); ASPARTATE AMINO TRANSFERASE 25 Units/L (15-37); BLOOD UREA NITROGEN 13 mg/dL (7-18); CALCIUM 8.4 mg/dL (8.5-10.1); CHLORIDE 109 mmol/L (98-107); COR CA(FOR HYPOALB) 9.2 mg/dL (8.5-10.1); COR NA(FOR HYPERGLY) 145 mmol/L (136-145); CREATININE 1.11 mg/dL (0.70-1.30); GLUCOSE 140 mg/dL (65-99); POTASSIUM 3.9 mmol/L (3.5-5.1); SODIUM 144 mmol/L (136-145); TOTAL PROTEIN 8.3 g/dL (6.4-8.2); eGFR NON BLACK RACES > 60 (>60)
[2025-05-01 06:42] LABS: VANCOMYCIN,TROUGH 10.4 ug/mL (15-20)
--- NOTE | 2025-05-01 07:37 | RAD ---
EXAM: AP chest HISTORY: Diminished lung sounds COMPARISON: 04/28/2025 FINDINGS: Cont inued normal heart size with clear lungs and pleural spaces. IMPRESSION: Normal chest exam; no change. THIS IS AN ELECTRONICALLY VERIFIED FINAL REPORT 05/01/2025 7:33 AM - Electronically signed by Selvin Frost MD
[2025-05-01 11:52] VITALS: PULSE 62; RESP 21
[2025-05-01 16:04] VITALS: BP 132/61; TEMP 98.2; O2SAT 96
== END 2025-05-01 18:25 | disposition home or self-care (01) | DRG 580 ==
LOC: ICU 15:14 → MED/SURG 04-30 12:28
PROVIDERS: ADMIT Internal Medicine; ATTEND Internal Medicine
DX: N50.89 Other specified disorders of the male genital organs; B95.62 Methicillin resistant Staphylococcus aureus infection as the cause of diseases classified elsewhere; L02.415 Cutaneous abscess of right lower limb; Z29.89 Encounter for other specified prophylactic measures; E87.6 Hypokalemia; Z16.12 Extended spectrum beta lactamase (ESBL) resistance; K61.0 Anal abscess; N50.82 Scrotal pain; E11.65 Type 2 diabetes mellitus with hyperglycemia; Z16.23 Resistance to quinolones and fluoroquinolones; Z16.29 Resistance to other single specified antibiotic; E78.5 Hyperlipidemia, unspecified; L03.115 Cellulitis of right lower limb